=== PATIENT | male | born 1960 | race Two or more races ===

== ENCOUNTER 2024-12-28 06:14 | Day surgery (SDC) | payer OTHER ==
[2024-12-28] MEDS ORDERED: DIPHENHYDRAMINE HCL 50 MG/ML VIAL 1ML IV ONE (08:15)
[2024-12-28] MEDS ORDERED: fentaNYL CITRATE 50 MCG/ML AMPUL IV PUSH ONE (08:15)
[2024-12-28] MEDS ORDERED: MIDAZOLAM HCL 2 MG/2 ML VIAL IV ONE (08:15)
== END 2024-12-28 10:10 | disposition home or self-care (01) ==
LOC: AMB-ENDOS 06:14
PROVIDERS: ATTEND Colon & Rectal Surgery
DX: D12.0 Benign neoplasm of cecum (principal); K63.5 Polyp of colon